=== PATIENT | male | born 1950 | race Hispanic/Latino ===

== ENCOUNTER 2021-01-19 09:05 | Outpatient (CLI) | payer MEDICARE, BC ==
[2021-01-19 10:17] LABS: Blood Urea Nitrogen 15 mg/dL (9-20)
--- NOTE | 2021-01-19 11:15 | Cat Scan Report ---
CTA CHEST WITH CONTRAST INDICATION / CLINICAL INFORMATION: ASCENDING AORTA DILATION 100 ml omni 300 . TECHNIQUE: Axial CT images were obtained through the chest after injection of IV contrast. 3 plane GA P and/or 3D reconstructions were produced. All CT scans at this location are performed using CT dose reduction for ALARA by means of automated exposure control. COMPARISON: None available. FINDINGS: PULMONARY ARTERIES: No pulmonary emboli. THORACIC AORTA: The ascending aorta is dilated at 4.6 cm at the level of the main pulmonary artery. T he sinotubular junction measures 3.8 cm proximally and the distal ascending aorta measures 3.9 cm. Th e aortic root measures 3.3 cm. There is a common origin of the right brachiocephalic and left common carotid artery. The proximal descending thoracic aorta at the level of the isthmus is 3.5 cm. Mild ao rtic valve calcification. HEART: No significant abnormality. CORONARY ARTERY CALCIFICATION: Mild. MEDIASTINUM / YRN: No significant abnormality. PLEURA: No pleural effusion. No pneumothorax. LUNGS: There is a 6 mm noncalcified nodule in the lingula on series 5 image 75. Additional 4 mm perif issural nodule in the left lower lobe on series 5 image 77. ADDITIONAL FINDINGS: None. UPPER ABDOMEN: Small hiatal hernia. Hepatic steatosis. SKELETAL STRUCTURES: Degenerative changes without aggressive osseous lesion. IMPRESSION: 1. Ascending aortic fusiform aneurysmal dilation as above. 2. Hepatic steatosis. 3. Single incidental pulmonary nodule(s) in the left lingular lobe measuring 6 mm with solid characte ristics. Recommendation according to Fleischner Society 2017 Guidelines: Low Risk Patient: CT at 6-12 months, then consider CT at 18-24 months; High Risk Patient: CT at 6-12 months, then CT at 18-24 mon ths. Additional 4 mm perifissural nodule in left lower lobe. Signer Name: Joseph Mohamud MD Signed: 01/19/2021 11:11 AM Workstation Name: [id number]
== END 2021-01-19 09:06 | disposition home or self-care (01) ==
LOC: CT 09:05
PROVIDERS: ATTEND Internal Medicine Cardiovascular Disease
DX: I71.2 Thoracic aortic aneurysm, without rupture (principal); I77.810 Thoracic aortic ectasia; K76.0 Fatty (change of) liver, not elsewhere classified; M47.814 Spondylosis without myelopathy or radiculopathy, thoracic region
CPT/HCPCS: 36415; 71275; 82565; 84520; Q9967

== ENCOUNTER 2021-07-12 06:57 | Outpatient (CLI) | payer MEDICARE ==
--- NOTE | 2021-07-12 09:37 | Cat Scan Report ---
CT CHEST WITHOUT CONTRAST INDICATION / CLINICAL INFORMATION: R91.1 NODULE last measurement was 6mm . TECHNIQUE: Axial CT images were obtained through the chest without contrast. All CT scans at this [facility] ation are performed using CT dose reduction for ALARA by means of automated exposure control. COMPARISON: 01/19/2021 FINDINGS: HEART: Stable borderline heart size. CORONARY ARTERY CALCIFICATION: Present -- Moderate. THORACIC AORTA: Moderate dilatation of the ascending aorta is again seen. I measure this at 4.7 cm on both examinations. MEDIASTINUM / YRN: Small hiatal hernia is unchanged. The remaining mediastinal contents are unremark able. No pathologic adenopathy. PLEURA: No pleural effusion. No pneumothorax. LUNGS: Mild pulmonary venous congestion is evident bilaterally. There are mild hypoventilatory change s in the lower lobes. Previously described 6 mm lingular nodule and 4 mm perifissural nodule on the l eft side are unchanged. No new pulmonary nodule or mass. ADDITIONAL FINDINGS: None. UPPER ABDOMEN: Mild hepatic steatosis. SKELETAL SYSTEM: Stable mild thoracic spondylosis. IMPRESSION: Stable millimetric left lung nodules since 01/19/2021. No new nodule. Borderline heart size. Mild pulmonary venous congestion. 4.7 cm ascending aortic aneurysm. Hepatic steatosis. Signer Name: Benjamin Segal Jr, MD Signed: 07/12/2021 9:33 AM Workstation Name: [id number]
== END 2021-07-12 06:58 | disposition home or self-care (01) ==
LOC: CT 06:57
PROVIDERS: ATTEND Specialist
DX: R91.1 Solitary pulmonary nodule (principal); I25.10 Atherosclerotic heart disease of native coronary artery without angina pectoris; K44.9 Diaphragmatic hernia without obstruction or gangrene; K76.0 Fatty (change of) liver, not elsewhere classified; R09.89 Other specified symptoms and signs involving the circulatory and respiratory systems; I71.9 Aortic aneurysm of unspecified site, without rupture; M47.814 Spondylosis without myelopathy or radiculopathy, thoracic region
CPT/HCPCS: 71250